=== PATIENT | female | born 1955 | race Caucasian/White ===

== ENCOUNTER 2020-09-11 07:38 | Day surgery (SDC) | payer BC, MEDICARE, OTHER ==
[2020-09-11] MEDS ORDERED: Sodium Chloride 0.9% 1,000 ML IV SCH (08:00)
[2020-09-11] MEDS ORDERED: Midazolam 1 MG/ML 2 ML SDV ONE (08:02)
[2020-09-11] MEDS ORDERED: Propofol 200 MG/20 ML SDV ONE (08:02)
[2020-09-11] MEDS ORDERED: fentaNYL 100 MCG/2 ML SDV ONE (08:02)
[2020-09-11 09:52] VITALS: BP 119/75; PULSE 87
--- NOTE | 2020-09-14 07:58 | OR ---
DATE OF PROCEDURE: 09/11/2020 SURGEON: Tramaine Gregorio MD PROCEDURE: Colonoscopy. FINDINGS: 1. Diverticulosis, mild, limited to sigmoid colon. 2. Tortuous colon. COMPLICATIONS: None. DISEASE EDUCATION SPECIALIST: None. ANESTHESIA: MAC. PREOPERATIVE DIAGNOSIS: Family history of colorectal cancer. POSTOPERATIVE DIAGNOSIS: Family history of colorectal cancer. RISKS: Risks, benefits, alternatives, and limitations including but not limited to infection, bleeding, and perforation were explained to the patient, and they wished to proceed. We also discussed false positives and false negatives. PROCEDURE IN DETAIL: The patient was placed in left lateral decubitus position. Digital rectal exam was performed without abnormality. Scope was introduced and advanced atraumatically to the ileocecal valve. The scope was brought back to the ascending, transverse, descending colon, and retroflexed. No evidence of old or new blood. No masses. No polyps. Diverticulosis was described as limited to sigmoid colon mostly, mild, without evidence of diverticulitis or bleeding. No evidence of colitis. Greater than 8 minutes was spent removing the scope. The prep was acceptable, approximately 95% luminal surface could be seen. Tramaine Gregorio MD /[id number]
== END 2020-09-11 10:00 | disposition home or self-care (01) ==
LOC: JP.SDS 07:38
PROVIDERS: ATTEND Surgery
DX: Z12.11 Encounter for screening for malignant neoplasm of colon (principal); K57.30 Diverticulosis of large intestine without perforation or abscess without bleeding; Z80.0 Family history of malignant neoplasm of digestive organs; K21.9 Gastro-esophageal reflux disease without esophagitis
CPT/HCPCS: J2250; J2704; J3010; J7030

== ENCOUNTER 2024-06-06 07:37 | Day surgery (SDC) | payer BC, MEDICARE ==
[2024-06-06] MEDS: Sodium Chloride 0.9% 10 ML Syringe FLUSH PRN (08:07)
[2024-06-06 08:53] VITALS: PULSE 72
[2024-06-06 09:20] VITALS: BP 147/87
== END 2024-06-06 08:45 | disposition home or self-care (01) ==
LOC: JP.SDS 07:37
PROVIDERS: ATTEND Ophthalmology
DX: H25.11 Age-related nuclear cataract, right eye (principal); K21.9 Gastro-esophageal reflux disease without esophagitis; F17.200 Nicotine dependence, unspecified, uncomplicated
CPT/HCPCS: 66984; J3490; V2632; 00142-QZ

== ENCOUNTER 2024-06-27 08:03 | Day surgery (SDC) | payer BC, MEDICARE ==
[2024-06-27] MEDS ORDERED: Sodium Chloride 0.9% 10 ML Syringe FLUSH ONE (08:30)
[2024-06-27 10:03] VITALS: BP 188/90; PULSE 73
== END 2024-06-27 10:09 | disposition home or self-care (01) ==
LOC: JP.SDS 08:03
PROVIDERS: ATTEND Ophthalmology
DX: H25.12 Age-related nuclear cataract, left eye (principal); K21.9 Gastro-esophageal reflux disease without esophagitis
CPT/HCPCS: 66984; V2632